=== PATIENT | female | born 1950 | race Caucasian/White ===

== ENCOUNTER → 2019-09-13 | Outpatient (CLI) | payer MEDICARE, BC | LOC: RAD 11:03 | DX: M25.512 Pain in left shoulder (principal) ==

== ENCOUNTER → 2019-09-27 | Outpatient (CLI) | payer MEDICARE, BC | LOC: RAD 09:41 | DX: M19.011 Primary osteoarthritis, right shoulder (principal) ==

== ENCOUNTER → 2020-06-12 | Outpatient (CLI) | payer MEDICARE, BC | LOC: RAD 10:00 | DX: M67.431 Ganglion, right wrist (principal); M19.031 Primary osteoarthritis, right wrist ==

== ENCOUNTER → 2020-08-28 | Outpatient (CLI) | payer MEDICARE, BC | LOC: RAD 08:00 | DX: M25.511 Pain in right shoulder (principal); M47.812 Spondylosis without myelopathy or radiculopathy, cervical region ==